=== PATIENT | female | born 1985 | race Caucasian/White ===

== ENCOUNTER 2016-09-26 17:06 | Emergency (ER) | payer MEDICAID, MEDICARE ==
[2016-09-26] MEDS ORDERED: LORazepam 1 MG TABLET PO ONE (18:39)
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
[2016-09-26] MEDS ORDERED: LORazepam 1 MG TABLET ONE (18:50)
[2016-09-26 18:54] LABS: Hematocrit 38.2 % (37.0-47.0); Hemoglobin 12.9 gm/dL (12.5-16.0); Mean Cell Volume 93.9 fl (78-100); Mean Corpuscular Hemoglobin 31.7 pg (27-31); Mean Corpuscular Hgb Conc 33.8 g/dl (32-36); Mean Platelet Volume 9.2 fl (6.0-9.5); Neutrophil # 2.6 K/mm3 (1.3-6.0); Neutrophil % 46.7 % (42-75.0); Platelet Count 273 K/mm3 (150-450); Red Blood Count 4.07 M/mm3 (4.2-5.4); Red Cell Distribution Width 11.4 % (11.5-14.0); White Blood Count 5.6 K/mm3 (4.0-10.5)
[2016-09-26 18:57] VITALS: BP 125/81
[2016-09-26 19:17] LABS: ALT 19 U/L (19-67); AST 13 U/L (0-48); Alkaline Phosphatase * 74 U/L (50-170); BUN/Creatinine Ratio 11.6 (9.0-21.6); Bilirubin, Total 0.3 mg/dL (0.0-1.1); Blood Urea Nitrogen 10 mg/dL (3-23); Ca. Corrected For Albumin 8.6 mg/dL (8.4-10.2); Calcium * 8.9 mg/dL (7.9-10.9); Carbon Dioxide 24.7 mmol/L (24-32.6); Chloride 106 mmol/L (97-106); Glucose * 90 mg/dL (70-110); Potassium 3.7 mmol/L (3.4-4.6); Sodium 142 mmol/L (132-142); TSH * 0.267 uIU/mL (0.358-3.74); Total Protein 7.5 gm/dL (6.2-8.2)
[2016-09-26 19:32] LABS: Urine Bilirubin Negative (NEGATIVE); Urine Blood Negative /ul (NEGATIVE); Urine Ketone Negative (NEGATIVE); Urine Nitrite Negative (NEGATIVE); Urine Protein 15 mg/dL (NEGATIVE); Urine Urobilinogen Normal (NORMAL)
[2016-09-26 19:41] LABS: Urine Appearance Clear; Urine Color Pale Yellow
[2016-09-26 19:42] LABS: Urine Bacteria TRACE; Urine RBC None Seen /hpf (0-5)
[2016-09-26 19:43] LABS: Urine WBC TRACE /hpf (0-5)
[2016-09-26 19:49] LABS: Cocaine Ur Negative (NEGATIVE); Urine Barbiturate Negative (NEGATIVE); Urine Opiates Negative (NEGATIVE); Urine PCP Negative (NEGATIVE); Urine THC Negative (NEGATIVE)
[2016-09-26 19:50] LABS: Urine Benzodiazepines Positive (NEGATIVE)
== END 2016-09-26 20:14 | disposition home or self-care (01) ==
LOC: ER 17:06
DX: F15.10 Other stimulant abuse, uncomplicated (principal); F13.10 Sedative, hypnotic or anxiolytic abuse, uncomplicated; Z53.29 Procedure and treatment not carried out because of patient's decision for other reasons
CPT/HCPCS: 36415; 80053; 80307; 81001; 84443; 84703; 85025; 99284; G0481

== ENCOUNTER 2017-01-19 11:08 | Emergency (ER) | payer MEDICAID ==
--- NOTE | 2017-01-19 11:42 | ERNOTE ---
Medical Problem HPI - General Chief Complaint: General Assessment Time Seen by Provider: 01/19/17 11:23 Source: patient Exam Limitations: no limitations - Immun/Allergies/Home Medications Immunizations: IMMUNIZATION HX Immunizations Up to Date No: unsure History of Influenza Vaccine No Hx Pneumococcal Vaccination No Allergies/Adverse Reactions: Allergies cyclobenzaprine HCl [From Flexeril] Allergy (Severe, Verified 01/19/17 11:35) Hives latex Allergy (Severe, Verified 01/19/17 11:35) Hives Penicillins Allergy (Severe, Verified 01/19/17 11:35) Hives tramadol Adverse Reaction (Severe, Verified 01/19/17 11:35) Other Pt states she has seizures from tramadol. Home Medications: HOME MEDICATIONS Citalopram Hydrobromide [Celexa] 40 mg PO DAILY 01/19/17 [Last Taken Unknown] Hydroxyzine HCl 25 mg PO BID PRN 01/19/17 [Last Taken Unknown] - History of Present History Narrative: Patient is here for intermittent neurological symptoms that started in August 2016. At that time she has a sudden severe headache and was unable to speak and had double vision. Symptoms lasted for 24 hours and resolved completely. Since then she has had various symptoms that come and go: double vision, vision deficit, severe vertigo. She last had double vision two days ago. Currently she has no symptoms but came to be evaluated as her friend encouraged her to do so. Review of Systems - Review of Systems Constitutional: Absent: recent illness, fever EYE: Present: see HPI ENT: Absent: nose congestion, sore throat Respiratory: Absent: shortness of breath, other Gastrointestinal/Abdominal: Absent: nausea, vomiting, abdominal pain Genitourinary: Present: no symptoms reported Musculoskeletal: Present: no symptoms reported Skin: Absent: rash Neurological: Present: See HPI - Patient's Past Medical History Patient History - Medical: Anxiety, Depression Patient History - Cardiac/Respiratory: No pertinent hx Patient History - Cancer: No Hx of Cancer Patient History - Surgical Procedures: Cholecystectomy, , Tubal Ligation, T & A, Other, Orthopedic Patient History - Other: None LMP (females 10-50): 2 weeks ago - Family History Mother Family History - Medical: Father Family History - Medical: - Social History Living Situations: home Abuse History: No History of abuse Psych History: Hx of Anxiety, Hx of Depression Smoking Status: Current every day smoker Alcohol Use: occasionally - 8-10 beer per week Drug Use: none - Immunizations Immunizations Up to Date: No - unsure Hx Pneumococcal Vaccination: No History of Influenza Vaccine: No Physical Exam - Physical Exam General Appearance: Present: wd/wn, alert, no apparent distress Head Exam: Present: normal inspection, no evidence of injury Eye Exam: Normal inspection: bilateral, PERRL: bilateral, EOMI: bilateral Ears, Nose, Throat: Present: normal ENT inspection, normal pharynx Neck: Present: normal inspection, nontender, supple, full range of motion Respiratory: Present: no respiratory distress, normal breath sounds, no accessory muscle use, lungs clear Cardiovascular/Chest: Present: regular rate, rhythm, no murmur Extremity Exam: Present: normal inspection, no edema Neurological Exam: Present: alert, oriented, normal mood/affect, no motor/ sensory deficits, iron piler II-XII nml as tested, normal cerebellar test DTR: N=norm/NB=norm/brisk/A=abs/DD=dull/dimin/HC=hyperactive: Bicep (R): Normal , Bicep (L): Normal, Knee (R): Normal, Knee (L): Normal Skin Exam: Present: normal color, warm/dry ED Progress - Results and Orders Patient's Lab Results:: I have reviewed the patient's lab results. - Vital Signs Patient's Vital Signs:: I have reviewed the patient's vital signs. Vital Signs: Vital Signs 01/19/17 11:24 Temperature 36.8 C Pulse Rate 127 H Respiratory 16 Rate Blood Pressure 149/97 O2 Sat by Pulse 96 Oximetry - CT/Ultrasound CT/Ultrasound Narrative: CT head: no acute findings - Progress/Reassessment Chief Complaint: General Assessment Progress Note-Subjective: 01/19/17 12:51 discussed results with patient, when asked about amphetamine in urine patient admits to using meth a few days ago, still denies any other drug use Departure Clinical Impression: Vision changes - Departure Disposition: Home self-care Condition: Stable Instructions: Blurred Vision Additional Instructions: you will be called by the [place] neurolog[facility] for a follow up appointment
[2017-01-19 12:00] LABS: Hematocrit 38.9 % (37.0-47.0); Mean Cell Volume 93.3 fl (78-100); Mean Corpuscular Hemoglobin 31.2 pg (27-31); Mean Corpuscular Hgb Conc 33.4 g/dl (32-36); Neutrophil # 3.6 K/mm3 (1.3-6.0); Neutrophil % 58.1 % (42-75.0); Platelet Count 326 K/mm3 (150-450); Red Blood Count 4.17 M/mm3 (4.2-5.4); Red Cell Distribution Width 11.9 % (11.5-14.0); White Blood Count 6.2 K/mm3 (4.0-10.5)
[2017-01-19 12:08] LABS: Albumin * 3.8 gm/dl (3.4-5.0); Anion Gap 12.3 mmol/L (6.8-13.8); BUN/Creatinine Ratio 16.2 (9.0-21.6); Bilirubin, Total 0.3 mg/dL (0.0-1.1); Ca. Corrected For Albumin 8.8 mg/dL (8.4-10.2); Potassium 4.3 mmol/L (3.4-4.6); Total Protein 7.8 gm/dL (6.2-8.2)
[2017-01-19 12:21] LABS: Urine Bilirubin Negative (NEGATIVE); Urine Blood Negative /ul (NEGATIVE); Urine Ketone Negative (NEGATIVE); Urine Nitrite Negative (NEGATIVE); Urine Protein Negative (NEGATIVE); Urine Specific Gravity 1.015 SP.GR. (1.005-1.010); Urine Urobilinogen Normal (NORMAL)
[2017-01-19 12:30] LABS: Urine Appearance Clear; Urine Bacteria TRACE; Urine Color Yellow; Urine RBC None Seen /hpf (0-5); Urine WBC None Seen /hpf (0-5)
[2017-01-19 12:34] LABS: Cocaine Ur Negative (NEGATIVE); Urine Barbiturate Negative (NEGATIVE); Urine Benzodiazepines Negative (NEGATIVE); Urine Opiates Negative (NEGATIVE); Urine PCP Negative (NEGATIVE); Urine THC Negative (NEGATIVE)
[2017-01-19 13:35] VITALS: BP 129/86
== END 2017-01-19 13:28 | disposition home or self-care (01) ==
LOC: ER 11:08
DX: F17.200 Nicotine dependence, unspecified, uncomplicated; H53.9 Unspecified visual disturbance
CPT/HCPCS: 36415; 70450; 80053; 80307; 81001; 85025; 85652; 99282; G0479